=== PATIENT | female | born 1990 | race American Indian/Alaskan Native ===

== ENCOUNTER 2019-07-27 01:13 | Outpatient (CLI) | payer MEDICAID ==
[2019-07-27] MEDS ORDERED: LACTATED RINGERS 1,000 ML IV ONE (02:22)
[2019-07-27] MEDS ORDERED: ONDANSETRON 4 MG/2 ML INJ IV ONE (02:31)
[2019-07-27 03:43] VITALS: BP 99/54
[2019-07-27 04:33] LABS: Bacteria,Urine 1+ /HPF (Negative); Bilirubin,Urine NEG (Negative); Blood,Urine SM (Negative); Color,Urine Amber (Yellow); Mucus,Urine FEW /HPF
--- NOTE | 2019-07-27 04:43 | Event Note ---
Date: 07/27/19 (n/ abdominal pain) Pt, a walk in patient, states that she was diagnosed with a UTI but has not been able to keep down the Macrobid that was prescribed to her. She is approximately 36 weeks of gestation. Will send urine culture, pending urine analysis. Pt also stated that she had a fever but temperature noted here was 98.5. Pt was given a fluid bolus, and Zofran IV. States that she feels better. Pt will be sent home on Keflex and Zofran ODT. Will call patient pending results of urine culture. Her strip remained category 1 throughout triage stay. She was discharged home in good condition.
== END 2019-07-27 06:18 | disposition home or self-care (01) ==
LOC: TRG 01:13 → APU 01:16 → TRG 06:18
PROVIDERS: ATTEND Obstetrics & Gynecology
DX: O21.2 Late vomiting of pregnancy (principal); O23.43 Unspecified infection of urinary tract in pregnancy, third trimester; O13.3 Gestational [pregnancy-induced] hypertension without significant proteinuria, third trimester; O47.03 False labor before 37 completed weeks of gestation, third trimester; Z3A.36 36 weeks gestation of pregnancy; Z87.891 Personal history of nicotine dependence
CPT/HCPCS: 81001; 87076; 87086; 87186; 96361; 96374; J2405; J7120